=== PATIENT | male | born 2000 | race Caucasian/White ===

== ENCOUNTER 2023-07-04 13:04 | Emergency (ER) | payer MEDICAID ==
[~2023-07-04] VITALS: Ht 185.4 cm; Wt 124.5 kg
[2023-07-04 13:37] VITALS: BP 150/93; PULSE 131; RESP 20; TEMP 99.5; O2SAT 93
[2023-07-04] MEDS ORDERED: AMOX-117 PO (15:24)
== END 2023-07-04 15:56 | disposition home or self-care (01) ==
LOC: ER 13:05
DX: J32.9 Chronic sinusitis, unspecified (principal); J02.9 Acute pharyngitis, unspecified; R09.81 Nasal congestion
CPT/HCPCS: 99283

== ENCOUNTER 2025-04-26 08:45 | Emergency (ER) | payer MEDICAID ==
[~2025-04-26] VITALS: Ht 180.3 cm; Wt 117.5 kg
[2025-04-26 08:52] VITALS: BP 131/87; PULSE 82; RESP 18; TEMP 97.7; O2SAT 97
--- NOTE | 2025-04-26 09:00 | Physician Documentation ---
History of Present Illness ~ Chief Complaint: Ear Pain Stated Complaint: L EAR PAIN Time Seen by MD: 08:59 HPI This is a 24-year-old male who presents due to bilateral ear pain. He notes that he was seen at urgent Care three or four days ago and was started on ofloxacin ear drops for the right ear. The left ear has now begun to cause him pain, he reports subjective fever, he feels that he is worse rather than better. He denies any chronic health conditions or antibiotic allergies. Medication Reconciliation Allergies: Coded Allergies: No Known Allergies (Unverified , 04/26/25) Scheduled Amox Tr/Potassium Clavulanate (Augmentin 875-125 Tablet), 1 TAB PO Q12H Ciprofloxacin Hcl/Hc Otic Susp* (Cipro Hc Otic Susp*), 3 DROP RIGHT EAR Q12H Review of Systems ROS As stated above in the HPI, otherwise all systems are reviewed and negative. Physical Exam Vital Signs: Temperature: 97.7, Source: Temporal, Heart Rate: 82, Respiratory Rate: 18, BP: 131/87, Pulse Oximetry: 97, Weight: 117.500 Physical Exam General: Alert, no apparent distress. HEENT: PERRL, EOMI, no injection, moist mucous membranes. Right ear canal is narrowed, erythematous, no mastoid tenderness. Can not visualize the TM. The left ear canal is normal, but the TM is erythematous. Neck: Full range of motion. Respiratory: Lungs clear, no respiratory distress. Chest: No accessory muscle use. Cardiovascular: Regular rate and rhythm, no murmurs. Gastrointestinal: Soft, nontender, nondistended. Bowels sounds present. Extremities: Normal range of motion, no deformity. Neurologic: Oriented x4. Psychiatric: Normal mood and affect. Skin: Normal color, warm and dry. No edema, no ecchymosis. Progress Results/Orders Results/Orders Vital Signs 04/26/25 08:52 Temp 97.7 Pulse 82 Resp 18 B/P (MAP) 131/87 Pulse Ox 97 Medical Decision Making Ear Diff. Dx: Considerations: Include: Abrasion, Cerumen impaction, Foreign body, Otitis externa, Barotrauma, Otitis media, Perforation, Referred pain- dental, Referred pain-pharyngitis, Referred pain-sinusitis, Referred pain-TMJ syn., Tympanic Membrane Injury Departure Time of Disposition: 09:04 Disposition: 01 HOME / SELF CARE / HOMELESS Impression: Primary Impression: Otitis externa Qualified Codes: H60.391 - Other infective otitis externa, right ear Additional Impression: Otitis media Qualified Codes: H66.002 - Acute suppurative otitis media without spontaneous rupture of ear drum, left ear Discharge Instructions: Earache, Adult, Otitis Media, Adult Additional Instructions: Take the oral antibiotic. Use the steroid ear drops in the right ear canal as directed. Followup with your primary care within a week or return if worse. Referrals: NO PRIMARY CARE PROVIDER (PCP) Prescriptions Ciprofloxacin Hcl/Hc Otic Susp* (Cipro Hc Otic Susp*) 10 Ml Bottle 3 DROP RIGHT EAR Q12H for 7 Days, #10 ML Prov: JL TAI NP 04/26/25 Amox Tr/Potassium Clavulanate (Augmentin 875-125 Tablet) 1 Each Tablet 1 TAB PO Q12H for 7 Days, #14 TAB Prov: JL TAI NP 04/26/25 Education Educated: Patient, Family Educated regarding: diagnosis, treatment, prognosis, need for follow up Signature Scribe Signature: x Attestation: The note accurately reflects work and decisions made by me.Jl Du NP 04/26/25 09:07 JL TAI NP Apr 26, 2025 09:00
[2025-04-26] MEDS ORDERED: AMOX-117 PO (09:06)
[2025-04-26] MEDS ORDERED: CIPR10DR RIGHT EAR (09:06)
== END 2025-04-26 09:08 | disposition home or self-care (01) ==
LOC: ER 08:45
DX: H66.93 Otitis media, unspecified, bilateral (principal); H60.91 Unspecified otitis externa, right ear
CPT/HCPCS: 99283